=== PATIENT | female | born 1990 | race Two or more races ===

== ENCOUNTER 2018-02-05 16:33 | Emergency (ER) | payer MEDICAID ==
[~2018-02-05] VITALS: Ht 154.9 cm; Wt 56.0 kg
[2018-02-05 16:56] LABS: BASOPHILS % (AUTO) 0.1 % (0-1); EOSINOPHILS # (AUTO) 0.2 X10'3 (0-0.9); EOSINOPHILS % (AUTO) 3.2 % (0-6); HEMOGLOBIN 12.7 g/dl (12.0-16.0); LYMPHOCYTES # (AUTO) 1.1 X10'3 (1.1-4.8); LYMPHOCYTES % (AUTO) 14.1 % (21-51); MEAN CORPUSCULAR HEMOGLOBIN 31.7 PG (27.0-31.0); MEAN CORPUSCULAR HGB CONC 33.4 % (33.0-36.5); MEAN CORPUSCULAR VOLUME 94.8 FL (78-98); MEAN PLATELET VOLUME 9.1 FL (7.4-10.4); MONOCYTES # (AUTO) 0.7 X10'3 (0-0.9); NEUTROPHILS # (AUTO) 5.5 X10'3 (1.8-7.7); NEUTROPHILS % (AUTO) 73.6 % (42-75); PLATELET COUNT 220 X10'3 (140-440); RED BLOOD COUNT 4.01 X10'6 (4.20-5.60); RED CELL DISTRIBUTION WIDTH 12.3 % (11.5-14.5); WHITE BLOOD COUNT 7.5 X10'3 (4.5-11.0)
[2018-02-05 17:09] LABS: PROTHROMBIN TIME 10.7 SECONDS (9.0-12.0)
[2018-02-05 17:11] LABS: ALANINE AMINOTRANSFERASE 19 U/L (12-78); ALBUMIN 3.5 G/DL (3.4-5.0); ALBUMIN/GLOBULIN RATIO 1.1 (1.1-1.5); ALKALINE PHOSPHATASE 91 IU/L (46-116); AMYLASE 38 U/L (25-115); ANION GAP 7 (8-16); ASPARTATE AMINO TRANSFERASE 19 U/L (10-37); BILIRUBIN,TOTAL 0.4 MG/DL (0.1-1.0); BLOOD UREA NITROGEN 14 MG/DL (7-18); BUN/CREATININE RATIO 20.6 (6.6-38.0); CALCIUM 8.3 MG/DL (8.5-10.1); CHLORIDE 108 MMOL/L (99-107); CREATININE 0.68 MG/DL (0.40-0.90); GLUCOSE 82 MG/DL (70-104); LIPASE 90 U/L (73-393); POTASSIUM 3.7 MMOL/L (3.5-5.1); SODIUM 145 MMOL/L (135-145); TOTAL CARBON DIOXIDE 30.1 MMOL/L (24-32); TOTAL PROTEIN 6.6 G/DL (6.4-8.2); eGFR > 90 ML/MIN
[2018-02-05 17:20] LABS: TOTAL CELLS COUNTED 100
[2018-02-05 17:21] LABS: PLATELET ESTIMATE NORMAL
[2018-02-05] MEDS ORDERED: proCHLORperazine 10 MG/2 ml inj IM ONE (17:30)
[2018-02-05] MEDS ORDERED: SUCR1ORA12 PO (17:50)
[2018-02-05 18:03] VITALS: BP 132/69
== END 2018-02-05 18:00 | disposition home or self-care (01) ==
LOC: ER 16:33
DX: R10.13 Epigastric pain (principal); R11.2 Nausea with vomiting, unspecified
CPT/HCPCS: 36415; 80053; 82150; 83690; 85025; 85610; 96372; 99284; J0780

== ENCOUNTER 2018-07-06 20:31 | Emergency (ER) | payer MEDICAID ==
[~2018-07-06] VITALS: Ht 162.6 cm; Wt 52.1 kg
[~2018-07-06 20:31] MED LIST: SUCR1ORA12 PO
[2018-07-06 20:43] VITALS: BP 146/95
[2018-07-06] MEDS ORDERED: morphine 4 MG/ML inj SYRINge IV PRN (20:50)
[2018-07-06] MEDS ORDERED: ondansetron/PF 4mg/2ml inj IV ONE (20:50)
[2018-07-06] MEDS ORDERED: normal saline 1000ML IV soln IVB ONE (20:50)
[2018-07-06 21:52] LABS: BASOPHILS % (AUTO) 0.7 % (0-1); EOSINOPHILS # (AUTO) 0.4 X10'3 (0-0.9); EOSINOPHILS % (AUTO) 6.1 % (0-6); HEMATOCRIT 38.5 % (35.0-45.0); HEMOGLOBIN 12.9 g/dl (12.0-16.0); LYMPHOCYTES # (AUTO) 1.7 X10'3 (1.1-4.8); LYMPHOCYTES % (AUTO) 26.2 % (21-51); MEAN CORPUSCULAR HGB CONC 33.6 g/dL (33.0-36.5); MEAN CORPUSCULAR VOLUME 92.2 FL (78-98); MEAN PLATELET VOLUME 9.4 FL (7.4-10.4); MONOCYTES # (AUTO) 0.5 X10'3 (0-0.9); MONOCYTES % (AUTO) 7.7 % (2-12); NEUTROPHILS # (AUTO) 3.8 X10'3 (1.8-7.7); NEUTROPHILS % (AUTO) 59.3 % (42-75); PLATELET COUNT 273 X10'3 (140-440); RED BLOOD COUNT 4.17 X10'6 (4.20-5.60); RED CELL DISTRIBUTION WIDTH 12.5 % (11.5-14.5); WHITE BLOOD COUNT 6.4 X10'3 (4.5-11.0)
[2018-07-06 22:02] LABS: ALANINE AMINOTRANSFERASE 26 U/L (12-78); ALBUMIN 4.1 G/DL (3.4-5.0); ALBUMIN/GLOBULIN RATIO 1.1 (1.1-1.5); ALKALINE PHOSPHATASE 66 IU/L (46-116); ANION GAP 9 (8-16); ASPARTATE AMINO TRANSFERASE 17 U/L (10-37); BILIRUBIN,TOTAL 0.3 MG/DL (0.1-1.0); BLOOD UREA NITROGEN 13 MG/DL (7-18); BUN/CREATININE RATIO 18.8 (6.6-38.0); CALCIUM 9.2 MG/DL (8.5-10.1); CHLORIDE 104 MMOL/L (99-107); CREATININE 0.69 MG/DL (0.40-0.90); GLUCOSE 83 MG/DL (70-104); LIPASE 94 U/L (73-393); POTASSIUM 3.6 MMOL/L (3.5-5.1); SODIUM 140 MMOL/L (135-145); TOTAL CARBON DIOXIDE 27.3 MMOL/L (24-32); TOTAL PROTEIN 7.9 G/DL (6.4-8.2); eGFR > 90 ML/MIN
[2018-07-06] MEDS ORDERED: LIDOcaine Viscous 15ml cup PO ONE (23:35)
[2018-07-06] MEDS ORDERED: mag hydrox/Alum hydrox/simeth 30ml oral suspension PO ONE (23:35)
[2018-07-06] MEDS ORDERED: sucralfate 1 gm tablet PO ONE (23:35)
[2018-07-06] MEDS ORDERED: FAMO40TA73 PO (23:36)
--- NOTE | 2018-07-07 00:25 | NUR ---
PT STATED SHE FELT BETTER AFTER RECEIVING PO MEDS AND IS READY TO GO HOME
== END 2018-07-07 00:31 | disposition home or self-care (01) ==
LOC: ER 20:32
DX: R10.13 Epigastric pain (principal); R11.2 Nausea with vomiting, unspecified; R19.7 Diarrhea, unspecified; Z79.899 Other long term (current) drug therapy
CPT/HCPCS: 36415; 80053; 83690; 85025; 99284

== ENCOUNTER 2022-08-26 19:33 | Emergency (ER) | payer MEDICAID ==
[~2022-08-26] VITALS: Ht 154.9 cm; Wt 60.0 kg
[~2022-08-26 19:33] MED LIST changes: +FAMO40TA73 PO
[2022-08-26 19:58] VITALS: BP 141/85
[2022-08-26] MEDS ORDERED: IBUP-1984 PO (20:37)
[2022-08-26] MEDS ORDERED: AZIT-83 PO (20:47)
[2022-08-26] MEDS ORDERED: PRED20TA PO (20:47)
== END 2022-08-26 20:53 | disposition home or self-care (01) ==
LOC: ER 19:34
DX: M25.561 Pain in right knee (principal); R05.9 Cough, unspecified; Z88.5 Allergy status to narcotic agent
CPT/HCPCS: 73564; 99284

== ENCOUNTER 2024-02-13 14:58 | Emergency (ER) | payer MEDICAID ==
[~2024-02-13] VITALS: Ht 154.9 cm; Wt 63.1 kg
[2024-02-13 15:36] VITALS: TEMP 97.8
[2024-02-13 17:26] VITALS: BP 127/104; PULSE 65; RESP 20; O2SAT 98
[2024-02-13] MEDS ORDERED: PRED20TA PO (17:36)
== END 2024-02-13 17:54 | disposition home or self-care (01) ==
LOC: ER 14:59
DX: M54.2 Cervicalgia (principal); M89.8X1 Other specified disorders of bone, shoulder; Z88.5 Allergy status to narcotic agent; Z79.899 Other long term (current) drug therapy
CPT/HCPCS: 99283

== ENCOUNTER 2024-12-04 09:02 | Outpatient (CLI) | payer MEDICAID ==
--- NOTE | 2024-12-04 13:52 | RADIOLOGY REPORT ---
EXAM: MR MRI LOWER EXTREMITY LEFT HISTORY: PAIN IN LEFT KNEE COMPARISON: None TECHNIQUE: Multiplanar, multisequence imaging of the left knee was performed without contrast FINDINGS: MEDIAL COMPARTMENT: Globular signal extending to the inner 1/3 of the central body of the medial meni scus. Longitudinal horizontal tear component extending into the posterior horn. No focal chondrosis or subchondral edema. LATERAL COMPARTMENT: Intact lateral meniscus. No focal chondrosis or subchondral edema. PATELLOFEMORAL COMPARTMENT: No focal chondrosis or subchondral edema. CRUCIATE LIGAMENTS: Intact anterior and posterior cruciate ligaments. MEDIAL SUPPORTING STRUCTURES: Intact medial collateral ligament. LATERAL SUPPORTING STRUCTURES: Intact iliotibial band, lateral capsular ligament, fibular collateral ligament, popliteus, and biceps femoris tendons EXTENSOR MECHANISM: Intact JOINT SPACE/FLUID: Trace knee joint fluid. Trace edema of the superolateral aspect of Hoffa's fat pad . Correlate for patellar maltracking (patellar tendon -lateral femoral condylar friction syndrome). BONES: No acute fracture, osseous contusion, or aggressive focal osseous lesion MUSCLES: Normal in signal intensity and morphology NEUROVASCULAR: Unremarkable OTHER: None IMPRESSION: 1. Globular signal extending to the inner 1/3 of the central body of the medial meniscus. Longitudina l horizontal tear component extending into the posterior horn. 2. Trace knee joint fluid. Trace edema of the superolateral aspect of Hoffa's fat pad. Correlate for patellar maltracking (patellar tendon -lateral femoral condylar friction syndrome).
== END 2024-12-04 23:59 | disposition home or self-care (01) ==
LOC: MRI02 09:02
PROVIDERS: ATTEND Student in an Organized Health Care Education/Training Program
DX: S83.242A Other tear of medial meniscus, current injury, left knee, initial encounter (principal); M25.562 Pain in left knee; X58.XXXA Exposure to other specified factors, initial encounter; Y93.89 Activity, other specified; Y92.89 Other specified places as the place of occurrence of the external cause; Y99.8 Other external cause status
CPT/HCPCS: 73721

== ENCOUNTER 2025-03-01 17:14 | Emergency (ER) | payer MEDICAID ==
[~2025-03-01] VITALS: Ht 154.9 cm; Wt 60.1 kg
[2025-03-01 17:19] VITALS: BP 146/95; PULSE 88; RESP 16; TEMP 98.4; O2SAT 100
--- NOTE | 2025-03-01 17:47 | RADIOLOGY REPORT ---
CHEST RADIOGRAPH REASON FOR EXAM: Chest pain COMPARISON: None TECHNIQUE: One view of the chest is provided FINDINGS: The cardiomediastinal silhouette is within normal limits for technique. There is no focal airspace disease. There is no significant pleural effusion. No acute bony abnormality is identified. Surgical clips project over the right upper quadrant, likely from prior cholecystectomy. IMPRESSION: No radiographic evidence of acute cardiopulmonary process.
[2025-03-01 18:19] LABS: MEAN PLATELET VOLUME 9.1 FL (7.4-10.4); RED CELL DISTRIBUTION WIDTH 14.8 % (11.5-14.5)
[2025-03-01 18:55] LABS: CREATININE 0.54 MG/DL (0.40-0.90); PRO BRAIN NATRIURETIC PEPTIDE < 30 PG/ML (0-125); TOTAL CARBON DIOXIDE 28.8 MMOL/L (24-32); eCRCL 112 ML/MIN; eGFR > 90 ML/MIN
--- NOTE | 2025-03-02 06:19 | ELECTROCARDIOGRAPH REPORT ---
[facility] Test Date: 2025-03-01 Test Time: 17:56:03 Pat Name: MIGDALIA MICHELLE Department: EMERGENCY ROOM Room: Gender: F Sccm Administrator: : [id number] Requested By: JESUS REZA Order Number: [id number] Reading MD: Dr. TONY Carlton Measurements Intervals Reynolds Rate: 85 P: 51 LA: 127 QRS: 87 QRSD: 80 T: 53 QT: 350 QTc: 417 Interpretive Statements Sinus rhythm Electronically Signed On 03-03-2025 15:16:[address] TONY Carlton Please click the below link to view image of tracing.
== END 2025-03-01 23:28 | disposition left against medical advice (07) ==
LOC: ER 17:15
DX: R07.9 Chest pain, unspecified (principal); R06.02 Shortness of breath; Z88.5 Allergy status to narcotic agent
CPT/HCPCS: 36415; 71045; 80048; 83880; 84484; 85025; 93005; 99281